=== PATIENT | male | born 1945 | race Caucasian/White ===

== ENCOUNTER 2018-06-16 10:48 | Inpatient (IN) ==
[2018-06-16] MEDS ORDERED: ONDANSETRON 4 MG/2 ML VIAL ONE (10:53)
[2018-06-16] MEDS ORDERED: MORPHINE 4 MG/1 ML VIAL ONE (10:54)
[2018-06-16] MEDS ORDERED: LIDOCAINE 1% 20 ML VIAL ONE (10:57)
[2018-06-16] MEDS ORDERED: HEPARIN/NACL 0.9% 2 UNITS/ML 1,000 ML IV ONE (10:57)
[2018-06-16] MEDS ORDERED: TICAGRELOR 90 MG TABLET ONE (11:12)
[2018-06-16] MEDS ORDERED: TIROFIBAN 5,000 MCG/100 ML PREMIX IV ONE (11:14)
[2018-06-16] MEDS ORDERED: ENOXAPARIN 60 MG/0.6 ML SYRINGE ONE (11:15)
[2018-06-16] MEDS ORDERED: HEPARIN/NACL 0.9% 2 UNITS/ML 500 ML IV ONE (11:22)
[2018-06-16] MEDS ORDERED: MIDAZOLAM 2 MG/2 ML VIAL ONE (11:24)
[2018-06-16] MEDS ORDERED: fentaNYL 100 MCG/2 ML VIAL ONE (11:24)
[2018-06-16 11:35] LABS: Basophils # 0.1 10*3/uL (0.0-0.2); Basophils % 0.6 % (0.0-0.8); Eosinophils # 0.5 10*3/uL (0.0-0.87); Eosinophils % 4.4 % (0.00-10.9); Hematocrit 34.6 VOL% (42.0-52.0); Hemoglobin 11.2 GM/DL (14.0-18.0); Immature Granulocytes % 0.2 %; Immature Granulocytes Absolute 0.02 #; Lymphocytes # 6.1 10*3/uL (1.4-4.0); Lymphocytes % 57.1 % (21.2-54.2); Mean Corpuscular HGB Conc 32.4 GM/DL (32-36); Mean Corpuscular Hemoglobin 29 PG (27-34); Mean Corpuscular Volume 90.1 FL (87-102); Mean Platelet Volume 11.1 FL (9.6-12.0); Monocytes # 1.3 10*3/uL (0.11-0.8); Monocytes % 12.3 % (1.7-12.7); Neutrophils # 2.7 10*3/uL (1.4-7.4); Neutrophils % 25.4 % (38.7-73.9); Platelet Count 296 T/CUMM (130-400); Red Blood Count 3.84 MC/CUMM (3.8-5.5); Red Cell Distribution Width 12.7 % (9.3-17.3); White Blood Count 10.7 T/CUMM (4-12)
[2018-06-16] MEDS ORDERED: NITROGLYCERIN DRIP 50 MG/250 ML BOTTLE IV ONE (11:45)
[2018-06-16 11:58] LABS: Eosinophils 5 % (0-10); Hypochromasia 1+; Lymphocytes 51 % (20-55); Platelet Estimate Adequate; Segmented Neutrophils 30 % (50-85); Total Cells Counted 100
[2018-06-16 11:59] LABS: Atypical Lymphocytes Few
[2018-06-16 12:01] LABS: Alanine Aminotransferase 26 U/L (16-61); Albumin 3.1 G/DL (3.4-5.0); Alkaline Phosphatase 74 U/L (45-117); Aspartate Amino Transferase 22 U/L (0-37); Bilirubin,Total < 0.39 MG/DL (0.2-1.0); Blood Urea Nitrogen 25 MG/DL (7-18); Calcium 8.3 MG/DL (8.5-10.1); Glucose 117 MG/DL (74-106); Osmolality,Calculated 277.8 MOS/KG (273-304); Potassium 4.1 MMOL/L (3.5-5.1); Sodium 137 MMOL/L (136-145); Total Protein 6.4 G/DL (6.4-8.3); Troponin I 0.022 NG/ML (0.00-0.045)
[2018-06-16] MEDS ORDERED: ZALEPLON 5 MG CAPSULE PO PRN (12:11)
[2018-06-16] MEDS ORDERED: ACETAMINOPHEN 325 MG TABLET PO PRN (12:11)
[2018-06-16] MEDS ORDERED: ONDANSETRON 4 MG/2 ML VIAL IV PRN (12:11)
[2018-06-16] MEDS: SODIUM CHLORIDE 0.9% 1,000 ML IV SCH ×2 (12:30→19:24)
[2018-06-16] MEDS ORDERED: FLUTICASONE 50 MCG NASAL SPRAY 16 GM BOTTLE BOTH NARES PRN (12:30)
[2018-06-16] MEDS: busPIRone 5 MG TABLET PO SCH ×2 (14:12→16:17)
[2018-06-16] MEDS: PANTOPRAZOLE 40 MG TABLET PO SCH (14:12)
[2018-06-16] MEDS: ACETAMINOPHEN 500 MG TABLET PO SCH ×2 (14:18→20:59)
[2018-06-16] MEDS ORDERED: NITROGLYCERIN DRIP 50 MG/250 ML BOTTLE IV PRN (20:16)
[2018-06-16] MEDS: ATORVASTATIN 40 MG TABLET PO SCH (21:00)
[2018-06-16] MEDS: ZALEPLON 5 MG CAPSULE PO SCH (21:00)
[2018-06-16] MEDS: ESCITALOPRAM 10 MG TABLET PO SCH (21:00)
[2018-06-16] MEDS: TICAGRELOR 90 MG TABLET PO SCH (21:00)
[2018-06-16] MEDS: METOPROLOL TARTRATE 50 MG TABLET PO SCH (21:00)
[2018-06-16] MEDS: ALUMINUM/MAGNES/SIMETH MAX STR 30 ML UDCUP PO PRN (22:21)
[2018-06-17 03:54] LABS: Basophils % 0.3 % (0.0-0.8); Eosinophils % 0.2 % (0.00-10.9); Hematocrit 34.9 VOL% (42.0-52.0); Hemoglobin 11.4 GM/DL (14.0-18.0); Immature Granulocytes % 0.5 %; Immature Granulocytes Absolute 0.05 #; Lymphocytes # 1.5 10*3/uL (1.4-4.0); Lymphocytes % 14.5 % (21.2-54.2); Mean Corpuscular HGB Conc 32.7 GM/DL (32-36); Mean Corpuscular Hemoglobin 29 PG (27-34); Mean Corpuscular Volume 89.3 FL (87-102); Mean Platelet Volume 10.7 FL (9.6-12.0); Monocytes # 0.7 10*3/uL (0.11-0.8); Monocytes % 6.4 % (1.7-12.7); Neutrophils # 8.1 10*3/uL (1.4-7.4); Neutrophils % 78.1 % (38.7-73.9); Platelet Count 254 T/CUMM (130-400); Red Blood Count 3.91 MC/CUMM (3.8-5.5); White Blood Count 10.3 T/CUMM (4-12)
[2018-06-17 04:12] LABS: Calcium 8.4 MG/DL (8.5-10.1); Osmolality,Calculated 274.2 MOS/KG (273-304); Potassium 4.5 MMOL/L (3.5-5.1)
[2018-06-17] MEDS: ALUMINUM/MAGNES/SIMETH MAX STR 30 ML UDCUP PO PRN (05:02)
[2018-06-17] MEDS: ACETAMINOPHEN 500 MG TABLET PO SCH ×3 (09:28→20:21)
[2018-06-17] MEDS: LISINOPRIL 20 MG TABLET PO SCH (09:28)
[2018-06-17] MEDS: busPIRone 5 MG TABLET PO SCH ×4 (09:29→17:34)
[2018-06-17] MEDS: PANTOPRAZOLE 40 MG TABLET PO SCH (09:29)
[2018-06-17] MEDS: TICAGRELOR 90 MG TABLET PO SCH ×2 (09:29→20:20)
[2018-06-17] MEDS: ASPIRIN EC 81 MG TABLET PO SCH (09:29)
[2018-06-17] MEDS: METOPROLOL TARTRATE 50 MG TABLET PO SCH ×2 (09:29→20:20)
[2018-06-17] MEDS: ATORVASTATIN 40 MG TABLET PO SCH (20:20)
[2018-06-17] MEDS: ZALEPLON 5 MG CAPSULE PO SCH (20:21)
[2018-06-17] MEDS: ESCITALOPRAM 10 MG TABLET PO SCH (20:22)
[2018-06-18] MEDS: ACETAMINOPHEN 500 MG TABLET PO SCH (08:32)
[2018-06-18] MEDS: TICAGRELOR 90 MG TABLET PO SCH (08:33)
[2018-06-18] MEDS: ASPIRIN EC 81 MG TABLET PO SCH (08:34)
[2018-06-18] MEDS: METOPROLOL TARTRATE 50 MG TABLET PO SCH (08:34)
[2018-06-18] MEDS: LISINOPRIL 20 MG TABLET PO SCH (08:34)
[2018-06-18] MEDS: busPIRone 5 MG TABLET PO SCH (08:34)
[2018-06-18] MEDS: PANTOPRAZOLE 40 MG TABLET PO SCH (08:34)
[2018-06-18 08:37] VITALS: BP 135/78
[2018-06-18 08:56] LABS: Basophils % 0.2 % (0.0-0.8); Hematocrit 36.4 VOL% (42.0-52.0); Immature Granulocytes % 0.4 %; Immature Granulocytes Absolute 0.04 #; Lymphocytes # 1.6 10*3/uL (1.4-4.0); Lymphocytes % 14.5 % (21.2-54.2); Mean Corpuscular Hemoglobin 29 PG (27-34); Mean Corpuscular Volume 89.2 FL (87-102); Mean Platelet Volume 11.2 FL (9.6-12.0); Monocytes % 9.5 % (1.7-12.7); Neutrophils # 8.3 10*3/uL (1.4-7.4); Neutrophils % 75.4 % (38.7-73.9); Platelet Count 228 T/CUMM (130-400); Red Blood Count 4.08 MC/CUMM (3.8-5.5); White Blood Count 10.9 T/CUMM (4-12)
[2018-06-18] MEDS ORDERED: FUROSEMIDE 20 MG TABLET PO SCH (09:00)
[2018-06-18 09:10] LABS: Calcium 8.5 MG/DL (8.5-10.1); Osmolality,Calculated 262.8 MOS/KG (273-304); Potassium 4.4 MMOL/L (3.5-5.1)
[2018-06-19] MEDS ORDERED: POTASSIUM CHLORIDE 10 MEQ TABLET PO SCH (09:00)
== END 2018-06-18 11:30 | disposition home or self-care (01) | DRG 281 ==
LOC: EDUNIT# → N.ED 10:48 → N.ICU 11:03 → N.ED 11:04 → N.EDINP 12:07 → N.ICU 12:17
PROVIDERS: ADMIT Internal Medicine Cardiovascular Disease; ATTEND Internal Medicine Cardiovascular Disease
PROC: CLCCHCL (ICD-10-PCS; 2018-06-16 11:15)